=== PATIENT | male | born 1990 | race Caucasian/White ===

== ENCOUNTER 2018-03-16 20:16 | Emergency (ER) | payer OTHER ==
[~2018-03-16] VITALS: Ht 188 cm; Wt 118.2 kg
[~2018-03-16 20:16] MED LIST: [UNRECOGNIZED DRUG - REMARK]
[2018-03-16 21:06] VITALS: BP 158/77
[2018-03-16] MEDS ORDERED: LIDOCAINE/PF 1% 2 ML VIAL IM ONE (21:15)
[2018-03-16] MEDS ORDERED: IBUPROFEN 800 MG TABLET PO ONE (21:15)
[2018-03-16] MEDS ORDERED: AZITHROMYCIN 250 MG TABLET PO ONE (21:15)
[2018-03-16] MEDS ORDERED: CefTRIAXone SODIUM 1 GM/VIAL IM ONE (21:15)
== END 2018-03-16 21:51 | disposition home or self-care (01) ==
LOC: EMS 20:17
DX: R51 Headache (principal); M79.10 Myalgia, unspecified site
CPT/HCPCS: 96372; 99283; J0696; J3490

== ENCOUNTER 2020-03-29 20:30 | Emergency (ER) | payer MEDICAID, OTHER ==
[~2020-03-29] VITALS: Ht 188 cm; Wt 109.1 kg
[2020-03-29] MEDS ORDERED: ONDANSETRON HCL 4 MG TABLET PO ONE (22:30)
[2020-03-29 23:36] LABS: GLUCOSE,POINT OF CARE 228 MG/DL (70-110)
[2020-03-30 00:13] LABS: BASOPHILS % (AUTO) 0.6 % (0.0-2.0); EOSINOPHILS % (AUTO) 3.2 % (1.0-6.0); HEMATOCRIT 51.2 % (41-53); HEMOGLOBIN 17.8 g/dL (13.5-17.5); LYMPHOCYTES # (AUTO) 3.4 K/uL (1.0-4.8); LYMPHOCYTES % (AUTO) 31.3 % (22.0-44.0); MEAN CORPUSCULAR HEMOGLOBIN 30.4 pg (26.0-34.0); MEAN CORPUSCULAR HGB CONC 34.8 G/dL (31.0-37.0); MEAN CORPUSCULAR VOLUME 87 fL (80-100); MONOCYTES # (AUTO) 0.7 K/uL (0.1-1.0); MONOCYTES % (AUTO) 6.1 % (2.0-9.0); NEUTROPHILS # (AUTO) 6.4 K/uL (1.8-7.7); NEUTROPHILS % (AUTO) 58.8 % (40.0-70.0); PLATELET COUNT (AUTO) 203 K/uL (150-450); RED BLOOD CELL COUNT(AUTO) 5.87 MIL/uL (4.50-5.90)
[2020-03-30 00:28] LABS: APPEARANCE,URINE CLEAR (CLEAR); BILIRUBIN,URINE NEGATIVE (NEGATIVE); GLUCOSE, URINE (UA) >=1000 mg/dL (NEGATIVE); KETONES,URINE >=80 mg/dL (NEGATIVE); LEUKOCYTE ESTERASE ,URINE NEGATIVE (NEGATIVE); NITRATE,URINE NEGATIVE (NEGATIVE); OCCULT BLOOD,URINE NEGATIVE (NEGATIVE); PH,URINE 5.5 (5.0-8.0); PROTEIN,URINE TRACE (NEGATIVE); UROBILINOGEN,URINE 0.2 mg/dL (<=1.0)
[2020-03-30 00:35] LABS: ALANINE AMINOTRANSFERASE 40 U/L (12-78); ALBUMIN 4.8 g/dL (3.4-5.0); ALKALINE PHOSPHATASE 109 U/L (46-116); ANION GAP 3 mmol/L (8-16); ASPARTATE AMINOTRANSFERASE 12 U/L (15-37); BILIRUBIN,TOTAL 0.9 mg/dL (0.1-1.0); CALCIUM, TOTAL 9.8 mg/dL (8.8-10.5); CARBON DIOXIDE 32 mmol/L (22-29); CHLORIDE 98 mmol/L (98-107); CREATININE 0.92 mg/dL (0.60-1.30); GLOMERULAR FILTR. RATE CALC > 60 mL/min (>60); GLUCOSE,RANDOM 236 mg/dL (70-110); POTASSIUM 4.2 mmol/L (3.5-5.1); SODIUM SERUM 133 mmol/L (136-145); TOTAL PROTEIN, SERUM 8.5 g/dL (6.4-8.2); UREA NITROGEN, BLOOD 21 mg/dL (7-18)
[2020-03-30 00:38] LABS: BACTERIA,URINE Rare /HPF (None Seen); RBC,URINE 0-2 /HPF (0-2); SQUAMOUS EPITHELIAL CELL,UR Rare /LPF (None Seen); WBC,URINE 0-2 /HPF (0-5)
[2020-03-30 01:30] VITALS: BP 140/83
[2020-03-30 01:38] LABS: GLUCOSE,POINT OF CARE 252 MG/DL (70-110)
== END 2020-03-30 01:56 | disposition home or self-care (01) ==
LOC: EMS 20:30
DX: E11.65 Type 2 diabetes mellitus with hyperglycemia (principal)
CPT/HCPCS: 36415; 80053; 81001; 82962; 85025; 99283; Q0162